=== PATIENT | male | born 1980 | race Caucasian/White ===

== ENCOUNTER 2018-12-06 11:08 | Inpatient (IN) | payer OTHER ==
[2018-12-06 11:38] VITALS: BMI 37.6
--- NOTE | 2018-12-06 12:32 | HP ---
CIWA Score Nausea/Vomitin-Mild Nausea/No Vomiting Muscle Tremors: 3 Anxiety: 3 Agitation: 3 Paroxysmal Sweats: 2 Orientation: 0-Oriented Tacttile Disturbances: 0-None Auditory Disturbances: 0-None Visual Disturbances: 0-None Headache: 1-Very Mild CIWA-Ar Total Score: 13 - Admission Criteria OASAS Guidelines: Admission for Medically Managed Detox: Requires at least one of the followin. CIWA greater than 12 2. Seizures within the past 24 hours 3. Delirium tremens within the past 24 hours 4. Hallucinations within the past 24 hours 5. Acute intervention needed for co occurring medical disorder 6. Acute intervention needed for co occurring psychiatric disorder 7. Severe withdrawal that cannot be handled at a lower level of care (continued vomiting, continued diarrhea, abnormal vital signs) requiring intravenous medication and/or fluids 8. Admission ROS [facility] Chief Complaint: detox from alcohol Allergies/Adverse Reactions: Allergies Allergy/AdvReac Type Severity Reaction Status Date / Time No Known Allergies Allergy Verified 12/06/18 11:34 History of Present Illness: 38 year old male with a history of COPD, alcohol and opiate dependence (on methadone) here fore alcohol detox. Reports being at [facility] for methadone, states he is on 80 mg and did not get his dose today because his clinic is in the afternoon. No legal problems. Wants to do both detox and rehab. Alcohol: 4 pints of whiskey a day, last drink this morning, every day drinker; drinking heavily for a few years, drinks because of family issues, depressed from breakup with ex; never had a withdrawal seizure Heroin: used 4 days ago, sniffed, never injected Methadone: been on methadone for 4 years, had not gone in 2 months and reinstated 1.5 weeks ago, is on 80mg daily per patient Cigarettes: 1ppd since age 14 Surgeries: R boxer fracture and metal plate in R wrist Family: 1 child healthy, close with child; father had leukemia Living Situation: lives in own place by himself Work: [employer] in [email or web address] - Ebola screening Have you traveled outside of the country in the last 21 days: No Have you had contact with anyone from an Ebola affected area: No Do you have a fever: No - Review of Systems Constitutional: Diaphoresis EENT: reports: No Symptoms Reported Respiratory: reports: No Symptoms reported Cardiac: reports: No Symptoms Reported GI: reports: Nausea : reports: No Symptoms Reported Musculoskeletal: reports: Back Pain, Joint Pain (L knee pain), Joint Swelling ( L knee swelling) Integumentary: reports: No Symptoms Reported Neuro: reports: Headache Endocrine: reports: No Symptoms Reported Hematology: reports: No Symptoms Reported Psychiatric: reports: Judgement Intact, Mood/Affect Appropiate, Orientated x3, Anxious, Depressed Patient History - Smoking Cessation Smoking history: Current every day smoker Have you smoked in the past 12 months: Yes Aproximately how many cigarettes per day: 20 Hx Chewing Tobacco Use: No Initiated information on smoking cessation: Yes 'Breaking Loose' booklet given: 12/06/18 - Substances abused Alcohol Substance route: Oral Frequency: Daily Amount used: 4 pint of whiskey Age of first use: 14 Date of last use: 12/06/18 Admission Physical Exam [facility] - Vital Signs Vital Signs: Vital Signs - 24 hr 12/06/18 12/06/18 11:33 12:10 Temperature 98.9 F 98.9 F Pulse Rate 81 81 Respiratory 20 20 Rate Blood Pressure 132/85 - Physical General Appearance: Yes: No Apparent Distress, Nourished HEENTM: Yes: EOMI, Hearing grossly Normal Respiratory: Yes: Chest Non-Tender, Wheezing (bilateral) Neck: Yes: Within Normal Limits Cardiology: Yes: Regular Rhythm, Regular Rate Abdominal: Yes: Non Tender, Flat, Soft Musculoskeletal: Yes: Joint swelling (L knee tender to palpation on medial aspect) Neurological: Yes: parking enforcement officer II-XII NML intact, Fully Oriented, Alert, Motor Strength 5/5, Normal Mood/Affect, Normal Response - Diagnostic (1) Alcohol dependence Current Visit: Yes Status: Acute (2) Methadone dependence Current Visit: Yes Status: Acute Cleared for Admission [facility] - Detox or Rehab [facility] Level of Care: Medically Managed Breathalyzer - Breathalyzer Breathalyzer: 0 Urine Drug Screen - Test Device Lot number: [id number] Expiration date: 08/04/20 - Control Is test valid?: Yes - Results Drug screen NEGATIVE: No Urine drug screen results: MTD-Methadone Inpatient Rehab Admission - Rehab Decision to Admit Inpatient rehab admission?: No
[2018-12-06] MEDS ORDERED: BISMUTH SUBSALICYLATE 262 MG/15 ML BTL PO PRN (12:43)
[2018-12-06] MEDS ORDERED: MAGNESIUM HYDROX 2400MG/30ML ORAL SUSPENSION 30 ML CUP PO PRN (12:43)
[2018-12-06] MEDS ORDERED: MAG HYDROX/AL HYDROX/SIMETH 30 ML UNIT-DOSE CUP PO PRN (12:43)
[2018-12-06] MEDS ORDERED: MAGNESIUM CITRATE 300 ML BOTTLE PO PRN (12:43)
[2018-12-06] MEDS ORDERED: ACETAMINOPHEN 325 MG TABLET (FP) PO PRN (12:43)
[2018-12-06] MEDS ORDERED: chlordiazePOXIDE HCL 25 MG CAPSULE PO PRN (12:43)
[2018-12-06] MEDS ORDERED: MENTHOL/PHENOL 1 EACH UD MM PRN (12:43)
[2018-12-06] MEDS ORDERED: ALBUTEROL SO4 8 GM HFA INHALER IH PRN (12:46)
[2018-12-06] MEDS ORDERED: BUDESONIDE/FORMETEROL FUMARATE 80/4.5 mcg INHALER IH SCH (13:00)
--- NOTE | 2018-12-06 13:43 | PN ---
Teaching Attending Note Name of Resident: Rajat Darnell ATTENDING PHYSICIAN STATEMENT I saw and evaluated the patient. I reviewed the resident's note and discussed the case with the resident. I agree with the resident's findings and plan as documented. SUBJECTIVE:this 38 years old male with alcohol dependence,seeking detox,mmtp 80 mgs/day, left knee pain,last detox in 05/24 OBJECTIVE: Vital Signs Temperature 98.9 F 12/06/18 12:10 Pulse Rate 81 12/06/18 12:10 Respiratory Rate 20 12/06/18 12:10 Blood Pressure 132/85 12/06/18 11:33 O2 Sat by Pulse Oximetry (%) ASSESSMENT AND PLAN: this 38 years old male with alcohol dependence,need inpatient detox,medically managed,librium regimen plan to go to rehab after detox
[2018-12-06] MEDS ORDERED: METHADONE HCL 10 MG TABLET PO ONE (14:30)
[2018-12-06] MEDS ORDERED: METHADONE HCL 40 MG DISPERSABLE TABLET PO ONE (14:30)
[2018-12-06] MEDS: NICOTINE 21 MG/24 HOURS TOPICAL PATCH TD SCH (14:53)
[2018-12-06] MEDS: BUDESONIDE/FORMETEROL FUMARATE 80/4.5 mcg INHALER IH SCH ×2 (14:55→22:07)
[2018-12-06 16:33] LABS: HEMATOCRIT 39.5 % (35.4-49); HEMOGLOBIN 13.9 GM/dL (11.7-16.9); MCHC 35.2 g/dl (32.0-35.9); MEAN CELL VOLUME 125.3 fl (80-96); MEAN PLT VOLUME 8.3 fl (7.5-11.1); PLATELET COUNT 404 K/MM3 (134-434); RBC 3.15 M/mm3 (4.00-5.60); RDW 18.3 % (11.9-15.9); WHITE BLOOD COUNT 7.1 K/mm3 (4.0-10.0)
[2018-12-06 16:40] LABS: MCH 44.2 pg (25.7-33.7)
[2018-12-06 16:43] LABS: ALBUMIN 3.2 g/dl (3.4-5.0); BILIRUBIN,TOTAL 0.5 mg/dL (0.2-1); CALCIUM 9.3 mg/dL (8.5-10.1); CREATININE 0.6 mg/dL (0.55-1.3); POTASSIUM 4.7 mmol/L (3.5-5.1); TOT PROT 7.8 g/dl (6.4-8.2)
[2018-12-06] MEDS: chlordiazePOXIDE HCL 25 MG CAPSULE PO SCH ×2 (16:51→22:07)
[2018-12-06 16:52] LABS: BLOOD UREA NITROGEN 2.9 mg/dL (7-18)
--- NOTE | 2018-12-06 17:14 | PN ---
[facility] Progress Note Note: No edema. No SOB. Noted decreased BUN. Pt GFR wnl. K and Cl - wnl CMP Sodium 138 mmol/L (136-145) 12/06/18 13:00 Potassium 4.7 mmol/L (3.5-5.1) 12/06/18 13:00 Chloride 101 mmol/L (98-107) 12/06/18 13:00 Carbon Dioxide 32 mmol/L (21-32) 12/06/18 13:00 Anion Gap 4 MMOL/L (8-16) L 12/06/18 13:00 BUN 2.9 mg/dL (7-18) L* 12/06/18 13:00 Creatinine 0.6 mg/dL (0.55-1.3) 12/06/18 13:00 Est GFR (CKD-EPI)AfAm 146.79 12/06/18 13:00 Est GFR (CKD-EPI)NonAf 126.65 12/06/18 13:00 Random Glucose 91 mg/dL (74-106) 12/06/18 13:00 Calcium 9.3 mg/dL (8.5-10.1) 12/06/18 13:00 Total Bilirubin 0.5 mg/dL (0.2-1) 12/06/18 13:00 AST 66 U/L (15-37) H 12/06/18 13:00 ALT 47 U/L (13-61) 12/06/18 13:00 Alkaline Phosphatase 131 U/L (45-117) H 12/06/18 13:00 Total Protein 7.8 g/dl (6.4-8.2) 12/06/18 13:00 Albumin 3.2 g/dl (3.4-5.0) L 12/06/18 13:00 Labs reviewed. Plan: Repeat CMP in a.m.
[2018-12-06] MEDS: IBUPROFEN 400 MG TABLET (FP) PO PRN (18:50)
[2018-12-06] MEDS: THIAMINE HCL 100 MG TABLET (FP) PO SCH (22:07)
[2018-12-06] MEDS: MELATONIN 5 MG TABLETS PO PRN (22:08)
[2018-12-07] MEDS: hydrOXYzine PAMOATE 25 MG CAPSULE (FP) PO PRN (02:40)
[2018-12-07] MEDS: chlordiazePOXIDE HCL 25 MG CAPSULE PO SCH ×4 (05:30→22:07)
[2018-12-07] MEDS: IBUPROFEN 400 MG TABLET (FP) PO PRN ×2 (05:34→15:32)
[2018-12-07] MEDS: METHADONE HCL 40 MG DISPERSABLE TABLET PO SCH (05:34)
[2018-12-07] MEDS: PRENATAL VITAMINS W/ FOLIC ACID TABLET (FP) PO SCH (10:09)
[2018-12-07] MEDS: BUDESONIDE/FORMETEROL FUMARATE 80/4.5 mcg INHALER IH SCH ×2 (10:09→22:06)
[2018-12-07] MEDS: NICOTINE 21 MG/24 HOURS TOPICAL PATCH TD SCH (10:09)
[2018-12-07 10:58] LABS: ALBUMIN 2.8 g/dl (3.4-5.0); BILIRUBIN,TOTAL 0.5 mg/dL (0.2-1); BLOOD UREA NITROGEN 4.8 mg/dL (7-18); CALCIUM 8.9 mg/dL (8.5-10.1); CREATININE 0.6 mg/dL (0.55-1.3); POTASSIUM 3.9 mmol/L (3.5-5.1); TOT PROT 6.5 g/dl (6.4-8.2)
--- NOTE | 2018-12-07 11:10 | PN ---
S CIWA - CIWA Score Nausea/Vomitin-No Nausea/No Vomiting Muscle Tremors: None Anxiety: 3 Agitation: 0-Normal Activity Paroxysmal Sweats: 3 Orientation: 0-Oriented Tacttile Disturbances: 0-None Auditory Disturbances: 0-None Visual Disturbances: 0-None Headache: 2-Mild CIWA-Ar Total Score: 8 [facility] Progress Note (SOAP) Subjective: c/o anxiety, headache, and sweats. Objective: 12/07/18 11:09 Vital Signs 12/07/18 12/07/18 12/07/18 03:30 06:08 09:02 Temperature 97.0 F L 97.0 F L Pulse Rate 76 83 Respiratory 18 18 18 Rate Blood Pressure 121/81 120/78 Lab Results WBC 7.1 K/mm3 (4.0-10.0) 12/06/18 13:00 RBC 3.15 M/mm3 (4.00-5.60) L 12/06/18 13:00 Hgb 13.9 GM/dL (11.7-16.9) 12/06/18 13:00 Hct 39.5 % (35.4-49) 12/06/18 13:00 MCV 125.3 fl (80-96) H 12/06/18 13:00 MCHC 35.2 g/dl (32.0-35.9) 12/06/18 13:00 RDW 18.3 % (11.9-15.9) H 12/06/18 13:00 Plt Count 404 K/MM3 (134-434) 12/06/18 13:00 Sodium 139 mmol/L (136-145) 12/07/18 07:45 Potassium 3.9 mmol/L (3.5-5.1) 12/07/18 07:45 Chloride 101 mmol/L (98-107) 12/07/18 07:45 Carbon Dioxide 30 mmol/L (21-32) 12/07/18 07:45 Anion Gap 7 MMOL/L (8-16) L 12/07/18 07:45 BUN 4.8 mg/dL (7-18) L 12/07/18 07:45 Creatinine 0.6 mg/dL (0.55-1.3) 12/07/18 07:45 Random Glucose 109 mg/dL (74-106) H 12/07/18 07:45 Calcium 8.9 mg/dL (8.5-10.1) 12/07/18 07:45 Labs noted. Assessment: 12/07/18 11:09 AOX3, in no acute respiratory distress. Full ROM, ambulating in the unit. Withdrawal symptoms. Plan: continue detox.
--- NOTE | 2018-12-07 16:09 | PN ---
[facility] Progress Note Note: I was called to see this 38year old male for c/o fall. Pt was seen in his room lying in bed verbally responsive and in no respiratory distress. Pt states, "my legs felt asleep and i lost my balance and hit my right face on the wall. Denies any dizziness, lightheadedness, chest pain, headache, sob, n/v. No abrasions, swelling, or bruises noted. No redness, swelling, or abrasions noted on face. Pt states that he has pain in his left knee/swelling x1week now. vital signs stable (refer to v/s flowsheet). PE: HEENT: EOMI, PERRLA HEART: s1/s2, no murmurs LUNGS: clear to a/p, no wheezing, no rales. ABD: soft, non-tender, no cvat, +bowel sounds all quadrants. EXTR:+pulses, left knee tenderness/mild swelling x1wk, no abrasions, swelling, or bruises, good capillary refill. ASS: s/p fall (unwitnessed). PLAN: ER evaluation continue with acetaminophen and ibuprofen for pain management. supportive care. Pt refused to go to the ER for evaluation. The importance of going to the ER to be evaluated explained to pt but still adamant.
[2018-12-07] MEDS: METHOCARBAMOL 500 MG TABLET PO PRN (17:43)
[2018-12-07] MEDS: ACETAMINOPHEN 325 MG TABLET (FP) PO PRN (17:44)
[2018-12-07] MEDS: THIAMINE HCL 100 MG TABLET (FP) PO SCH (22:06)
[2018-12-07] MEDS: MELATONIN 5 MG TABLETS PO PRN (22:06)
[2018-12-08] MEDS: IBUPROFEN 400 MG TABLET (FP) PO PRN ×3 (05:32→17:33)
[2018-12-08] MEDS: METHADONE HCL 40 MG DISPERSABLE TABLET PO SCH (05:32)
[2018-12-08] MEDS: chlordiazePOXIDE HCL 25 MG CAPSULE PO SCH ×4 (05:32→22:15)
[2018-12-08] MEDS: BUDESONIDE/FORMETEROL FUMARATE 80/4.5 mcg INHALER IH SCH ×2 (10:01→22:16)
[2018-12-08] MEDS: PRENATAL VITAMINS W/ FOLIC ACID TABLET (FP) PO SCH (10:01)
[2018-12-08] MEDS: NICOTINE 21 MG/24 HOURS TOPICAL PATCH TD SCH (10:01)
--- NOTE | 2018-12-08 10:40 | PN ---
S CIWA - CIWA Score Nausea/Vomitin-No Nausea/No Vomiting Muscle Tremors: 1-None Visible, but [place] Anxiety: 2 Agitation: 1-Slight > Activity Paroxysmal Sweats: No Perspiration Orientation: 0-Oriented Tacttile Disturbances: 0-None Auditory Disturbances: 0-None Visual Disturbances: 0-None Headache: 0-None Present CIWA-Ar Total Score: 4 [facility] Progress Note (SOAP) Subjective: 38 years old male admitted 12/06/18 for alcohol withdrawal sx management treated with librium detox regimen patient tolerated well had a fall yesterday denies pain patient is alert oriented x 3 speech clearly coherently denies nausea no vomiting denies dizziness denies blurred vision Objective: 12/08/18 10:42 Vital Signs Temperature 98.6 F 12/08/18 09:01 Pulse Rate 77 12/08/18 09:01 Respiratory Rate 18 12/08/18 09:01 Blood Pressure 125/84 12/08/18 09:01 O2 Sat by Pulse Oximetry (%) Laboratory Last Values WBC 7.1 K/mm3 (4.0-10.0) 12/06/18 13:00 RBC 3.15 M/mm3 (4.00-5.60) L 12/06/18 13:00 Hgb 13.9 GM/dL (11.7-16.9) 12/06/18 13:00 Hct 39.5 % (35.4-49) 12/06/18 13:00 MCV 125.3 fl (80-96) H 12/06/18 13:00 MCH 44.2 pg (25.7-33.7) H 12/06/18 13:00 MCHC 35.2 g/dl (32.0-35.9) 12/06/18 13:00 RDW 18.3 % (11.9-15.9) H 12/06/18 13:00 Plt Count 404 K/MM3 (134-434) 12/06/18 13:00 MPV 8.3 fl (7.5-11.1) 12/06/18 13:00 Sodium 139 mmol/L (136-145) 12/07/18 07:45 Potassium 3.9 mmol/L (3.5-5.1) 12/07/18 07:45 Chloride 101 mmol/L (98-107) 12/07/18 07:45 Carbon Dioxide 30 mmol/L (21-32) 12/07/18 07:45 Anion Gap 7 MMOL/L (8-16) L 12/07/18 07:45 BUN 4.8 mg/dL (7-18) L 12/07/18 07:45 Creatinine 0.6 mg/dL (0.55-1.3) 12/07/18 07:45 Est GFR (CKD-EPI)AfAm 146.79 12/07/18 07:45 Est GFR (CKD-EPI)NonAf 126.65 12/07/18 07:45 Random Glucose 109 mg/dL (74-106) H 12/07/18 07:45 Calcium 8.9 mg/dL (8.5-10.1) 12/07/18 07:45 Total Bilirubin 0.5 mg/dL (0.2-1) 12/07/18 07:45 AST 40 U/L (15-37) H 12/07/18 07:45 ALT 33 U/L (13-61) 12/07/18 07:45 Alkaline Phosphatase 102 U/L (45-117) 12/07/18 07:45 Total Protein 6.5 g/dl (6.4-8.2) 12/07/18 07:45 Albumin 2.8 g/dl (3.4-5.0) L 12/07/18 07:45 RPR Titer Nonreactive (NONREACTIVE) 12/06/18 13:00 lab noted Assessment: 12/08/18 10:43 alcohol withdrawal sx Plan: continue librium detox regimen
[2018-12-08] MEDS: METHOCARBAMOL 500 MG TABLET PO PRN (22:15)
[2018-12-08] MEDS: MELATONIN 5 MG TABLETS PO PRN (22:15)
[2018-12-08] MEDS: THIAMINE HCL 100 MG TABLET (FP) PO SCH (22:15)
[2018-12-09] MEDS ORDERED: chlordiazePOXIDE HCL 10 MG CAPSULE PO PRN
[2018-12-09] MEDS: hydrOXYzine PAMOATE 25 MG CAPSULE (FP) PO PRN (02:25)
[2018-12-09] MEDS: chlordiazePOXIDE HCL 10 MG CAPSULE PO SCH ×4 (05:10→22:07)
[2018-12-09] MEDS: IBUPROFEN 400 MG TABLET (FP) PO PRN ×3 (05:11→18:19)
[2018-12-09] MEDS: METHOCARBAMOL 500 MG TABLET PO PRN ×2 (05:11→22:07)
[2018-12-09] MEDS: METHADONE HCL 40 MG DISPERSABLE TABLET PO SCH (05:11)
[2018-12-09] MEDS: NICOTINE 21 MG/24 HOURS TOPICAL PATCH TD SCH (10:04)
[2018-12-09] MEDS: PRENATAL VITAMINS W/ FOLIC ACID TABLET (FP) PO SCH (10:04)
[2018-12-09] MEDS: ACETAMINOPHEN 325 MG TABLET (FP) PO PRN (10:05)
[2018-12-09] MEDS: BUDESONIDE/FORMETEROL FUMARATE 80/4.5 mcg INHALER IH SCH ×2 (10:05→22:07)
--- NOTE | 2018-12-09 13:01 | PN ---
[facility] CIWA - CIWA Score Nausea/Vomitin-No Nausea/No Vomiting Muscle Tremors: 1-None Visible, but [place] Anxiety: 1-Mildly Anxious Agitation: 0-Normal Activity Paroxysmal Sweats: No Perspiration Orientation: 0-Oriented Tacttile Disturbances: 0-None Auditory Disturbances: 0-None Visual Disturbances: 0-None Headache: 0-None Present CIWA-Ar Total Score: 2 S Progress Note (SOAP) Subjective: 38 years old male admitted on 12/06/18 for alcohol withdrawal sx management treated with librium detox regimen patient tolerated well alert oriented x 3 discuss aftercare with staff in good sprite Objective: 12/09/18 13:00 Vital Signs Temperature 97.6 F 12/09/18 09:16 Pulse Rate 81 12/09/18 09:16 Respiratory Rate 18 12/09/18 09:16 Blood Pressure 113/73 12/09/18 09:16 O2 Sat by Pulse Oximetry (%) Laboratory Last Values WBC 7.1 K/mm3 (4.0-10.0) 12/06/18 13:00 RBC 3.15 M/mm3 (4.00-5.60) L 12/06/18 13:00 Hgb 13.9 GM/dL (11.7-16.9) 12/06/18 13:00 Hct 39.5 % (35.4-49) 12/06/18 13:00 MCV 125.3 fl (80-96) H 12/06/18 13:00 MCH 44.2 pg (25.7-33.7) H 12/06/18 13:00 MCHC 35.2 g/dl (32.0-35.9) 12/06/18 13:00 RDW 18.3 % (11.9-15.9) H 12/06/18 13:00 Plt Count 404 K/MM3 (134-434) 12/06/18 13:00 MPV 8.3 fl (7.5-11.1) 12/06/18 13:00 Sodium 139 mmol/L (136-145) 12/07/18 07:45 Potassium 3.9 mmol/L (3.5-5.1) 12/07/18 07:45 Chloride 101 mmol/L (98-107) 12/07/18 07:45 Carbon Dioxide 30 mmol/L (21-32) 12/07/18 07:45 Anion Gap 7 MMOL/L (8-16) L 12/07/18 07:45 BUN 4.8 mg/dL (7-18) L 12/07/18 07:45 Creatinine 0.6 mg/dL (0.55-1.3) 12/07/18 07:45 Est GFR (CKD-EPI)AfAm 146.79 12/07/18 07:45 Est GFR (CKD-EPI)NonAf 126.65 12/07/18 07:45 Random Glucose 109 mg/dL (74-106) H 12/07/18 07:45 Calcium 8.9 mg/dL (8.5-10.1) 12/07/18 07:45 Total Bilirubin 0.5 mg/dL (0.2-1) 12/07/18 07:45 AST 40 U/L (15-37) H 12/07/18 07:45 ALT 33 U/L (13-61) 12/07/18 07:45 Alkaline Phosphatase 102 U/L (45-117) 12/07/18 07:45 Total Protein 6.5 g/dl (6.4-8.2) 12/07/18 07:45 Albumin 2.8 g/dl (3.4-5.0) L 12/07/18 07:45 RPR Titer Nonreactive (NONREACTIVE) 12/06/18 13:00 lab noted Assessment: 12/09/18 13:00 alcohol withdrawal sx Plan: continue librium detox regimen
[2018-12-09] MEDS: THIAMINE HCL 100 MG TABLET (FP) PO SCH (22:07)
[2018-12-09] MEDS: MELATONIN 5 MG TABLETS PO PRN (22:08)
[2018-12-10] MEDS: hydrOXYzine PAMOATE 25 MG CAPSULE (FP) PO PRN ×2 (00:33→21:32)
[2018-12-10] MEDS: chlordiazePOXIDE HCL 10 MG CAPSULE PO SCH ×2 (05:52→17:11)
[2018-12-10] MEDS: METHADONE HCL 40 MG DISPERSABLE TABLET PO SCH (05:52)
[2018-12-10] MEDS: ACETAMINOPHEN 325 MG TABLET (FP) PO PRN ×2 (06:06→17:13)
[2018-12-10] MEDS: PRENATAL VITAMINS W/ FOLIC ACID TABLET (FP) PO SCH (09:51)
[2018-12-10] MEDS: BUDESONIDE/FORMETEROL FUMARATE 80/4.5 mcg INHALER IH SCH ×2 (09:51→21:33)
[2018-12-10] MEDS: NICOTINE 21 MG/24 HOURS TOPICAL PATCH TD SCH (09:52)
--- NOTE | 2018-12-10 10:25 | PN ---
[facility] CIWA - CIWA Score Nausea/Vomitin-No Nausea/No Vomiting Muscle Tremors: 1-None Visible, but [place] Anxiety: 0-No Anxiety, at Ease Agitation: 0-Normal Activity Paroxysmal Sweats: No Perspiration Orientation: 0-Oriented Tacttile Disturbances: 0-None Auditory Disturbances: 0-None Visual Disturbances: 0-None Headache: 0-None Present CIWA-Ar Total Score: 1 S Progress Note (SOAP) Subjective: 38 years old male admitted on 12/06/18 for alcohol withdrawal sx management treated with librium detox regimen patient tolerated well less tremor mild anxiety Objective: 12/10/18 10:24 Vital Signs Temperature 97.9 F 12/10/18 09:17 Pulse Rate 77 12/10/18 09:17 Respiratory Rate 18 12/10/18 09:17 Blood Pressure 127/86 12/10/18 09:17 O2 Sat by Pulse Oximetry (%) Laboratory Last Values WBC 7.1 K/mm3 (4.0-10.0) 12/06/18 13:00 RBC 3.15 M/mm3 (4.00-5.60) L 12/06/18 13:00 Hgb 13.9 GM/dL (11.7-16.9) 12/06/18 13:00 Hct 39.5 % (35.4-49) 12/06/18 13:00 MCV 125.3 fl (80-96) H 12/06/18 13:00 MCH 44.2 pg (25.7-33.7) H 12/06/18 13:00 MCHC 35.2 g/dl (32.0-35.9) 12/06/18 13:00 RDW 18.3 % (11.9-15.9) H 12/06/18 13:00 Plt Count 404 K/MM3 (134-434) 12/06/18 13:00 MPV 8.3 fl (7.5-11.1) 12/06/18 13:00 Sodium 139 mmol/L (136-145) 12/07/18 07:45 Potassium 3.9 mmol/L (3.5-5.1) 12/07/18 07:45 Chloride 101 mmol/L (98-107) 12/07/18 07:45 Carbon Dioxide 30 mmol/L (21-32) 12/07/18 07:45 Anion Gap 7 MMOL/L (8-16) L 12/07/18 07:45 BUN 4.8 mg/dL (7-18) L 12/07/18 07:45 Creatinine 0.6 mg/dL (0.55-1.3) 12/07/18 07:45 Est GFR (CKD-EPI)AfAm 146.79 12/07/18 07:45 Est GFR (CKD-EPI)NonAf 126.65 12/07/18 07:45 Random Glucose 109 mg/dL (74-106) H 12/07/18 07:45 Calcium 8.9 mg/dL (8.5-10.1) 12/07/18 07:45 Total Bilirubin 0.5 mg/dL (0.2-1) 12/07/18 07:45 AST 40 U/L (15-37) H 12/07/18 07:45 ALT 33 U/L (13-61) 12/07/18 07:45 Alkaline Phosphatase 102 U/L (45-117) 12/07/18 07:45 Total Protein 6.5 g/dl (6.4-8.2) 12/07/18 07:45 Albumin 2.8 g/dl (3.4-5.0) L 12/07/18 07:45 RPR Titer Nonreactive (NONREACTIVE) 12/06/18 13:00 lab noted Assessment: 12/10/18 10:25 alcohol withdrawal sx Plan: librium detox regimen
[2018-12-10] MEDS: IBUPROFEN 400 MG TABLET (FP) PO PRN ×2 (11:54→21:33)
[2018-12-10] MEDS: METHOCARBAMOL 500 MG TABLET PO PRN ×2 (11:54→21:32)
[2018-12-10] MEDS: THIAMINE HCL 100 MG TABLET (FP) PO SCH (21:32)
[2018-12-10] MEDS: MELATONIN 5 MG TABLETS PO PRN (21:33)
[2018-12-11] MEDS ORDERED: chlordiazePOXIDE HCL 10 MG CAPSULE PO ONE (05:00)
[2018-12-11] MEDS: METHADONE HCL 40 MG DISPERSABLE TABLET PO SCH (05:40)
[2018-12-11] MEDS: IBUPROFEN 400 MG TABLET (FP) PO PRN (05:41)
[2018-12-11] MEDS: METHOCARBAMOL 500 MG TABLET PO PRN (05:41)
[2018-12-11] MEDS: NICOTINE 21 MG/24 HOURS TOPICAL PATCH TD SCH (10:10)
[2018-12-11] MEDS: BUDESONIDE/FORMETEROL FUMARATE 80/4.5 mcg INHALER IH SCH (10:11)
[2018-12-11] MEDS: PRENATAL VITAMINS W/ FOLIC ACID TABLET (FP) PO SCH (10:11)
--- NOTE | 2018-12-11 10:56 | DS ---
[facility] Detox Discharge Summary Admission Date: 12/06/18 Discharge Date: 12/11/18 - History Present History: Alcohol Dependence Additional Comments: 38 years old male admitted on 12/06/18 for alcohol withdrawal sx management treated with libirum detox regimen patient is alert oriented x 3 respiratory clear lung bilaterally on auscultation long history of asthma treated with ventolin and symbicort abdomen soft round obese no rebound tenderness skin warm dry - Physical Exam Results Vital Signs: Vital Signs Temperature 98.4 F 12/11/18 09:03 Pulse Rate 96 H 12/11/18 09:03 Respiratory Rate 18 12/11/18 09:03 Blood Pressure 115/82 12/11/18 09:03 O2 Sat by Pulse Oximetry (%) Pertinent Admission Physical Exam Findings: alcohol withdrawal sx Laboratory Last Values WBC 7.1 K/mm3 (4.0-10.0) 12/06/18 13:00 RBC 3.15 M/mm3 (4.00-5.60) L 12/06/18 13:00 Hgb 13.9 GM/dL (11.7-16.9) 12/06/18 13:00 Hct 39.5 % (35.4-49) 12/06/18 13:00 MCV 125.3 fl (80-96) H 12/06/18 13:00 MCH 44.2 pg (25.7-33.7) H 12/06/18 13:00 MCHC 35.2 g/dl (32.0-35.9) 12/06/18 13:00 RDW 18.3 % (11.9-15.9) H 12/06/18 13:00 Plt Count 404 K/MM3 (134-434) 12/06/18 13:00 MPV 8.3 fl (7.5-11.1) 12/06/18 13:00 Sodium 139 mmol/L (136-145) 12/07/18 07:45 Potassium 3.9 mmol/L (3.5-5.1) 12/07/18 07:45 Chloride 101 mmol/L (98-107) 12/07/18 07:45 Carbon Dioxide 30 mmol/L (21-32) 12/07/18 07:45 Anion Gap 7 MMOL/L (8-16) L 12/07/18 07:45 BUN 4.8 mg/dL (7-18) L 12/07/18 07:45 Creatinine 0.6 mg/dL (0.55-1.3) 12/07/18 07:45 Est GFR (CKD-EPI)AfAm 146.79 12/07/18 07:45 Est GFR (CKD-EPI)NonAf 126.65 12/07/18 07:45 Random Glucose 109 mg/dL (74-106) H 12/07/18 07:45 Calcium 8.9 mg/dL (8.5-10.1) 12/07/18 07:45 Total Bilirubin 0.5 mg/dL (0.2-1) 12/07/18 07:45 AST 40 U/L (15-37) H 12/07/18 07:45 ALT 33 U/L (13-61) 12/07/18 07:45 Alkaline Phosphatase 102 U/L (45-117) 12/07/18 07:45 Total Protein 6.5 g/dl (6.4-8.2) 12/07/18 07:45 Albumin 2.8 g/dl (3.4-5.0) L 12/07/18 07:45 RPR Titer Nonreactive (NONREACTIVE) 12/06/18 13:00 lab noted - Treatment Hospital Course: Detox Protocol Followed, Detoxed Safely, Responded well, Discharged Condition Good, Rehab Referral Accepted Patient has Accepted [facility] - Medication Discharge Medications: Ambulatory Orders Albuterol Sulfate Inhaler - [Ventolin HFA Inhaler -] 1 - 2 inh PO QID PRN Budesonide/Formeterol Fumarate [SYMBICORT 80/4.5mcg -] 1 inh PO DAILY 12/06/18 - Diagnosis (1) Asthma Current Visit: Yes Status: Chronic Qualifiers: Asthma severity: mild Asthma persistence: intermittent Asthma complication type: with status asthmaticus Qualified Code(s): J45.22 - Mild intermittent asthma with status asthmaticus (2) Alcohol dependence Current Visit: Yes Status: Acute Qualifiers: Substance use status: uncomplicated Qualified Code(s): F10.20 - Alcohol dependence, uncomplicated (3) Methadone dependence Current Visit: Yes Status: Chronic - AMA Did Patient Leave Against Medical Advice: No CIWA Score - CIWA Score Nausea/Vomitin-No Nausea/No Vomiting Muscle Tremors: None Anxiety: 0-No Anxiety, at Ease Agitation: 0-Normal Activity Paroxysmal Sweats: No Perspiration Orientation: 0-Oriented Tacttile Disturbances: 0-None Auditory Disturbances: 0-None Visual Disturbances: 0-None Headache: 0-None Present CIWA-Ar Total Score: 0
[2018-12-11] MEDS: ACETAMINOPHEN 325 MG TABLET (FP) PO PRN (11:46)
[2018-12-11 13:16] VITALS: BP 115/67; PULSE 90; TEMP 96.5
== END 2018-12-11 14:34 | disposition other institution (70) | DRG 773 ==
LOC: YASAS 11:08 → Y3N 14:15
PROVIDERS: ADMIT Allergy & Immunology; ATTEND Allergy & Immunology
PROC: HZ2ZZZZ Detoxification Services for Substance Abuse Treatment (ICD-10-PCS; principal; 2018-12-06)
DX: F11.23 Opioid dependence with withdrawal (principal); F11.20 Opioid dependence, uncomplicated; J45.22 Mild intermittent asthma with status asthmaticus; J44.9 Chronic obstructive pulmonary disease, unspecified; S09.93XA Unspecified injury of face, initial encounter; M25.562 Pain in left knee; W22.8XXA Striking against or struck by other objects, initial encounter; Y93.89 Activity, other specified; Y92.230 Patient room in hospital as the place of occurrence of the external cause; Y99.8 Other external cause status
CPT/HCPCS: 36415; 80053; 85027; 86593

== ENCOUNTER 2018-12-11 14:42 | Inpatient (IN) | payer OTHER ==
--- NOTE | 2018-12-11 10:58 | HP ---
[facility] Rehab Assess/Revision - Admission History Admitted to Rehab from: [facility] Date of Admission to Rehab: 12/11/18 - Findings Detox History & Physical reviewed: Yes Concur with findings: Yes Comments/Additional Findings: transferred from detox to rehab admission as per protocol Inpatient Rehab Admission - Rehab Decision to Admit Inpatient rehab admission?: Yes - Initial Determination Are CD services needed?: Yes Free of communicable disease: Yes Not in need of hospitalization: Yes - Rehab Admission Criteria Previous failed treatment: Yes Poor recovery environment: Yes Comorbidities: Yes Lacks judgement: Yes Patient is meeting Inpatient Rehab admission criteria:: Yes
[~2018-12-11 14:42] MED LIST: LOPERAMIDE HCL 2 MG CAPSULE PO PRN; MAGNESIUM CITRATE 300 ML BOTTLE PO PRN; MAGNESIUM HYDROX 2400MG/30ML ORAL SUSPENSION 30 ML CUP PO PRN; MENTHOL/PHENOL 1 EACH UD MM PRN; NICOTINE POLACRILEX 4 MG GUM BUC PRN; P-EPHED 60MG/TRIPROLIDI 2.5MG TABLET PO PRN; guaiFENesin 200 MG/10 ML 10 ML UNIT-DOSE CUPS PO PRN
[2018-12-11] MEDS: IBUPROFEN 400 MG TABLET (FP) PO PRN (18:48)
[2018-12-11] MEDS: THIAMINE HCL 100 MG TABLET (FP) PO SCH (21:08)
[2018-12-11] MEDS: MELATONIN 5 MG TABLETS PO PRN (21:08)
[2018-12-11] MEDS: BUDESONIDE/FORMETEROL FUMARATE 80/4.5 mcg INHALER IH SCH (21:09)
[2018-12-12] MEDS: METHADONE HCL 40 MG DISPERSABLE TABLET PO SCH (06:00)
[2018-12-12] MEDS: IBUPROFEN 400 MG TABLET (FP) PO PRN ×3 (06:01→21:14)
[2018-12-12] MEDS: NICOTINE 21 MG/24 HOURS TOPICAL PATCH TD SCH (10:01)
[2018-12-12] MEDS: PRENATAL VITAMINS W/ FOLIC ACID TABLET (FP) PO SCH (10:01)
[2018-12-12] MEDS: BUDESONIDE/FORMETEROL FUMARATE 80/4.5 mcg INHALER IH SCH ×2 (10:01→21:12)
[2018-12-12] MEDS: ALBUTEROL SO4 8 GM HFA INHALER IH PRN (10:02)
[2018-12-12] MEDS: ACETAMINOPHEN 325 MG TABLET (FP) PO PRN ×2 (10:03→14:57)
[2018-12-12] MEDS: METHYL SALICYLATE/MENTHOL OINT 30 GM TUBE TP SCH ×2 (15:02→21:13)
[2018-12-12] MEDS: THIAMINE HCL 100 MG TABLET (FP) PO SCH (21:12)
[2018-12-12] MEDS: MELATONIN 5 MG TABLETS PO PRN (21:13)
[2018-12-13] MEDS: METHADONE HCL 40 MG DISPERSABLE TABLET PO SCH (06:14)
[2018-12-13] MEDS: IBUPROFEN 400 MG TABLET (FP) PO PRN (06:15)
[2018-12-13] MEDS: ALBUTEROL SO4 8 GM HFA INHALER IH PRN (10:12)
[2018-12-13] MEDS: BUDESONIDE/FORMETEROL FUMARATE 80/4.5 mcg INHALER IH SCH ×2 (10:12→21:12)
[2018-12-13] MEDS: ACETAMINOPHEN 325 MG TABLET (FP) PO PRN (10:13)
[2018-12-13] MEDS: PRENATAL VITAMINS W/ FOLIC ACID TABLET (FP) PO SCH (10:13)
[2018-12-13] MEDS: NICOTINE 21 MG/24 HOURS TOPICAL PATCH TD SCH (10:15)
[2018-12-13] MEDS: METHYL SALICYLATE/MENTHOL OINT 30 GM TUBE TP SCH ×2 (10:15→21:14)
--- NOTE | 2018-12-13 12:19 | PN ---
S Progress Note Note: Pt c/o left knee, ankle and foot pain since July 2018. Reports went to his doctor over the summer and it was not that painful. Pt is wondering if he needs and can do an MRI here. Vital Signs 12/13/18 07:19 Temperature 97.5 F L Pulse Rate 81 Respiratory 18 Rate Blood Pressure 108/84 Left Leg: slight size difference in size compare to right knee. No redness noted. A/P Chronic Knee/foot pain D/w pt motrin 600 mg po Q6h prn Lidocaine patch as directed Analgesic balm as directed Follow up with his primary care and orthopedics after rehab treatment. Pt agreeable to poc.
[2018-12-13] MEDS: LIDOCAINE 5% TOPICAL PATCH TP SCH (14:14)
[2018-12-13] MEDS: IBUPROFEN 600 MG TABLET (FP) PO PRN ×2 (14:14→21:13)
[2018-12-13] MEDS: THIAMINE HCL 100 MG TABLET (FP) PO SCH (21:12)
[2018-12-13] MEDS: MELATONIN 5 MG TABLETS PO PRN (21:12)
[2018-12-13] MEDS: LIDOCAINE PATCH REMOVAL MC SCH (21:14)
[2018-12-14] MEDS: ACETAMINOPHEN 325 MG TABLET (FP) PO PRN (01:40)
[2018-12-14] MEDS: METHADONE HCL 40 MG DISPERSABLE TABLET PO SCH (06:26)
[2018-12-14] MEDS: IBUPROFEN 600 MG TABLET (FP) PO PRN ×2 (06:28→14:06)
[2018-12-14] MEDS: PRENATAL VITAMINS W/ FOLIC ACID TABLET (FP) PO SCH (09:37)
[2018-12-14] MEDS: NICOTINE 21 MG/24 HOURS TOPICAL PATCH TD SCH (09:37)
[2018-12-14] MEDS: LIDOCAINE 5% TOPICAL PATCH TP SCH (09:38)
[2018-12-14] MEDS: BUDESONIDE/FORMETEROL FUMARATE 80/4.5 mcg INHALER IH SCH ×2 (09:39→21:12)
[2018-12-14] MEDS: METHYL SALICYLATE/MENTHOL OINT 30 GM TUBE TP SCH ×2 (10:54→21:12)
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
[2018-12-14] MEDS: LIDOCAINE PATCH REMOVAL MC SCH (21:12)
[2018-12-14] MEDS: THIAMINE HCL 100 MG TABLET (FP) PO SCH (21:13)
[2018-12-14] MEDS: MELATONIN 5 MG TABLETS PO PRN (21:13)
[2018-12-14] MEDS ORDERED: traZODone HCL 50 MG TABLET (FP) PO ONE (22:08)
[2018-12-15] MEDS: METHADONE HCL 40 MG DISPERSABLE TABLET PO SCH (06:12)
[2018-12-15] MEDS: IBUPROFEN 600 MG TABLET (FP) PO PRN ×3 (06:14→21:12)
[2018-12-15] MEDS: BUDESONIDE/FORMETEROL FUMARATE 80/4.5 mcg INHALER IH SCH ×2 (10:09→21:09)
[2018-12-15] MEDS: LIDOCAINE 5% TOPICAL PATCH TP SCH (10:10)
[2018-12-15] MEDS: NICOTINE 21 MG/24 HOURS TOPICAL PATCH TD SCH (10:10)
[2018-12-15] MEDS: PRENATAL VITAMINS W/ FOLIC ACID TABLET (FP) PO SCH (10:11)
[2018-12-15] MEDS: METHYL SALICYLATE/MENTHOL OINT 30 GM TUBE TP SCH ×2 (10:11→21:11)
[2018-12-15] MEDS: ACETAMINOPHEN 325 MG TABLET (FP) PO PRN (18:53)
[2018-12-15] MEDS: THIAMINE HCL 100 MG TABLET (FP) PO SCH (21:09)
[2018-12-15] MEDS: LIDOCAINE PATCH REMOVAL MC SCH (21:09)
[2018-12-15] MEDS: MELATONIN 5 MG TABLETS PO PRN (21:10)
[2018-12-16] MEDS: METHADONE HCL 40 MG DISPERSABLE TABLET PO SCH (06:21)
[2018-12-16] MEDS: IBUPROFEN 600 MG TABLET (FP) PO PRN ×3 (06:23→21:16)
[2018-12-16] MEDS: PRENATAL VITAMINS W/ FOLIC ACID TABLET (FP) PO SCH (10:00)
[2018-12-16] MEDS: NICOTINE 21 MG/24 HOURS TOPICAL PATCH TD SCH (10:00)
[2018-12-16] MEDS: LIDOCAINE 5% TOPICAL PATCH TP SCH (10:00)
[2018-12-16] MEDS: BUDESONIDE/FORMETEROL FUMARATE 80/4.5 mcg INHALER IH SCH ×2 (10:00→21:14)
[2018-12-16] MEDS: METHYL SALICYLATE/MENTHOL OINT 30 GM TUBE TP SCH ×2 (10:01→21:15)
[2018-12-16] MEDS: LIDOCAINE PATCH REMOVAL MC SCH (21:14)
[2018-12-16] MEDS: MELATONIN 5 MG TABLETS PO PRN (21:14)
[2018-12-16] MEDS: THIAMINE HCL 100 MG TABLET (FP) PO SCH (21:14)
[2018-12-16] MEDS ORDERED: traZODone HCL 50 MG TABLET (FP) PO SCH (22:00)
[2018-12-17] MEDS: METHADONE HCL 40 MG DISPERSABLE TABLET PO SCH (06:00)
[2018-12-17] MEDS: IBUPROFEN 600 MG TABLET (FP) PO PRN ×3 (06:01→21:09)
[2018-12-17] MEDS: PRENATAL VITAMINS W/ FOLIC ACID TABLET (FP) PO SCH (10:35)
[2018-12-17] MEDS: LIDOCAINE 5% TOPICAL PATCH TP SCH (10:36)
[2018-12-17] MEDS: ALBUTEROL SO4 8 GM HFA INHALER IH PRN (10:36)
[2018-12-17] MEDS: NICOTINE 21 MG/24 HOURS TOPICAL PATCH TD SCH (10:36)
[2018-12-17] MEDS: BUDESONIDE/FORMETEROL FUMARATE 80/4.5 mcg INHALER IH SCH ×2 (10:36→21:08)
[2018-12-17] MEDS: METHYL SALICYLATE/MENTHOL OINT 30 GM TUBE TP SCH ×2 (10:36→21:08)
[2018-12-17] MEDS: ACETAMINOPHEN 325 MG TABLET (FP) PO PRN (10:37)
--- NOTE | 2018-12-17 18:23 | PN ---
[facility] Progress Note Note: Psychiatry Attending's note (folow-up) : Called by nurse for titration of trazodone. Reason : partial response to 50 mg at bedtime. Mr Palm still reports limited improvement of insomnia. Now requesting increase to 100 mg/hs (his dose in the past). Side effects/benefits revisited with the patient. Trazodone ordered. Plan : trazodone 100 mg po hs. Sleep hygiene recommended. Patient seen.
[2018-12-17] MEDS: THIAMINE HCL 100 MG TABLET (FP) PO SCH (21:07)
[2018-12-17] MEDS: traZODone HCL 100 MG TABLET (FP) PO SCH (21:07)
[2018-12-17] MEDS: LIDOCAINE PATCH REMOVAL MC SCH (21:08)
[2018-12-17] MEDS: MELATONIN 5 MG TABLETS PO PRN (21:10)
[2018-12-18] MEDS: METHADONE HCL 40 MG DISPERSABLE TABLET PO SCH (06:15)
[2018-12-18] MEDS: IBUPROFEN 600 MG TABLET (FP) PO PRN ×3 (06:18→21:09)
[2018-12-18] MEDS: ALBUTEROL SO4 8 GM HFA INHALER IH PRN ×2 (07:09→14:11)
[2018-12-18] MEDS: LIDOCAINE 5% TOPICAL PATCH TP SCH (10:05)
[2018-12-18] MEDS: NICOTINE 21 MG/24 HOURS TOPICAL PATCH TD SCH (10:06)
[2018-12-18] MEDS: PRENATAL VITAMINS W/ FOLIC ACID TABLET (FP) PO SCH (10:06)
[2018-12-18] MEDS: METHYL SALICYLATE/MENTHOL OINT 30 GM TUBE TP SCH ×2 (10:07→21:10)
[2018-12-18] MEDS: BUDESONIDE/FORMETEROL FUMARATE 80/4.5 mcg INHALER IH SCH ×2 (10:07→21:08)
[2018-12-18] MEDS: ACETAMINOPHEN 325 MG TABLET (FP) PO PRN ×2 (10:07→17:06)
[2018-12-18] MEDS: traZODone HCL 100 MG TABLET (FP) PO SCH (21:08)
[2018-12-18] MEDS: THIAMINE HCL 100 MG TABLET (FP) PO SCH (21:09)
[2018-12-18] MEDS: LIDOCAINE PATCH REMOVAL MC SCH (21:11)
[2018-12-18] MEDS: MELATONIN 5 MG TABLETS PO PRN (22:11)
[2018-12-19] MEDS: METHADONE HCL 40 MG DISPERSABLE TABLET PO SCH (07:15)
[2018-12-19] MEDS: LIDOCAINE 5% TOPICAL PATCH TP SCH (10:15)
[2018-12-19] MEDS: BUDESONIDE/FORMETEROL FUMARATE 80/4.5 mcg INHALER IH SCH ×2 (10:15→21:18)
[2018-12-19] MEDS: PRENATAL VITAMINS W/ FOLIC ACID TABLET (FP) PO SCH (10:15)
[2018-12-19] MEDS: NICOTINE 21 MG/24 HOURS TOPICAL PATCH TD SCH (10:15)
[2018-12-19] MEDS: IBUPROFEN 600 MG TABLET (FP) PO PRN (10:16)
[2018-12-19] MEDS: METHYL SALICYLATE/MENTHOL OINT 30 GM TUBE TP SCH ×2 (10:19→21:19)
[2018-12-19] MEDS: METHOCARBAMOL 500 MG TABLET PO PRN ×2 (13:39→21:19)
[2018-12-19] MEDS: THIAMINE HCL 100 MG TABLET (FP) PO SCH (21:18)
[2018-12-19] MEDS: MELATONIN 5 MG TABLETS PO PRN (21:18)
[2018-12-19] MEDS: traZODone HCL 100 MG TABLET (FP) PO SCH (21:18)
[2018-12-19] MEDS: LIDOCAINE PATCH REMOVAL MC SCH (21:19)
[2018-12-20] MEDS: METHADONE HCL 40 MG DISPERSABLE TABLET PO SCH (06:12)
[2018-12-20] MEDS: METHOCARBAMOL 500 MG TABLET PO PRN ×3 (06:15→21:08)
[2018-12-20] MEDS: IBUPROFEN 600 MG TABLET (FP) PO PRN ×2 (08:50→17:32)
[2018-12-20] MEDS: PRENATAL VITAMINS W/ FOLIC ACID TABLET (FP) PO SCH (09:48)
[2018-12-20] MEDS: NICOTINE 21 MG/24 HOURS TOPICAL PATCH TD SCH (09:48)
[2018-12-20] MEDS: LIDOCAINE 5% TOPICAL PATCH TP SCH (09:49)
[2018-12-20] MEDS: METHYL SALICYLATE/MENTHOL OINT 30 GM TUBE TP SCH ×2 (11:21→21:09)
[2018-12-20] MEDS: BUDESONIDE/FORMETEROL FUMARATE 80/4.5 mcg INHALER IH SCH ×2 (11:22→21:08)
[2018-12-20] MEDS: MAG HYDROX/AL HYDROX/SIMETH 30 ML UNIT-DOSE CUP PO PRN (19:40)
[2018-12-20] MEDS: traZODone HCL 100 MG TABLET (FP) PO SCH (21:07)
[2018-12-20] MEDS: LIDOCAINE PATCH REMOVAL MC SCH (21:08)
[2018-12-20] MEDS: MELATONIN 5 MG TABLETS PO PRN (21:09)
[2018-12-20] MEDS: THIAMINE HCL 100 MG TABLET (FP) PO SCH (21:09)
[2018-12-21] MEDS: METHOCARBAMOL 500 MG TABLET PO PRN ×3 (06:13→21:11)
[2018-12-21] MEDS: METHADONE HCL 40 MG DISPERSABLE TABLET PO SCH (06:13)
[2018-12-21] MEDS: PRENATAL VITAMINS W/ FOLIC ACID TABLET (FP) PO SCH (09:55)
[2018-12-21] MEDS: IBUPROFEN 600 MG TABLET (FP) PO PRN ×2 (09:55→18:29)
[2018-12-21] MEDS: LIDOCAINE 5% TOPICAL PATCH TP SCH (09:57)
[2018-12-21] MEDS: METHYL SALICYLATE/MENTHOL OINT 30 GM TUBE TP SCH ×2 (09:57→21:11)
[2018-12-21] MEDS: NICOTINE 21 MG/24 HOURS TOPICAL PATCH TD SCH (09:57)
[2018-12-21] MEDS: BUDESONIDE/FORMETEROL FUMARATE 80/4.5 mcg INHALER IH SCH ×2 (09:58→21:11)
[2018-12-21] MEDS: MAG HYDROX/AL HYDROX/SIMETH 30 ML UNIT-DOSE CUP PO PRN (10:30)
[2018-12-21] MEDS: ACETAMINOPHEN 325 MG TABLET (FP) PO PRN (14:56)
[2018-12-21] MEDS: ALBUTEROL SO4 8 GM HFA INHALER IH PRN (14:56)
[2018-12-21] MEDS: traZODone HCL 100 MG TABLET (FP) PO SCH (21:10)
[2018-12-21] MEDS: THIAMINE HCL 100 MG TABLET (FP) PO SCH (21:10)
[2018-12-21] MEDS: MELATONIN 5 MG TABLETS PO PRN (21:12)
[2018-12-21] MEDS: LIDOCAINE PATCH REMOVAL MC SCH (21:12)
[2018-12-22] MEDS: METHOCARBAMOL 500 MG TABLET PO PRN ×3 (06:06→21:08)
[2018-12-22] MEDS: METHADONE HCL 40 MG DISPERSABLE TABLET PO SCH (06:06)
[2018-12-22] MEDS: NICOTINE 21 MG/24 HOURS TOPICAL PATCH TD SCH (09:36)
[2018-12-22] MEDS: METHYL SALICYLATE/MENTHOL OINT 30 GM TUBE TP SCH ×2 (09:36→21:07)
[2018-12-22] MEDS: LIDOCAINE 5% TOPICAL PATCH TP SCH (09:36)
[2018-12-22] MEDS: PRENATAL VITAMINS W/ FOLIC ACID TABLET (FP) PO SCH (09:36)
[2018-12-22] MEDS: BUDESONIDE/FORMETEROL FUMARATE 80/4.5 mcg INHALER IH SCH ×2 (09:37→21:09)
[2018-12-22] MEDS: IBUPROFEN 600 MG TABLET (FP) PO PRN ×2 (13:08→18:54)
[2018-12-22] MEDS: THIAMINE HCL 100 MG TABLET (FP) PO SCH (21:07)
[2018-12-22] MEDS: MELATONIN 5 MG TABLETS PO PRN (21:07)
[2018-12-22] MEDS: traZODone HCL 100 MG TABLET (FP) PO SCH (21:07)
[2018-12-22] MEDS: LIDOCAINE PATCH REMOVAL MC SCH (21:08)
[2018-12-22] MEDS: ACETAMINOPHEN 325 MG TABLET (FP) PO PRN (21:10)
[2018-12-23] MEDS: MAG HYDROX/AL HYDROX/SIMETH 30 ML UNIT-DOSE CUP PO PRN (04:32)
[2018-12-23] MEDS: TRIMETHOBENZAMIDE HCL 200MG/2ML INJ IM PRN ×2 (05:05→18:03)
[2018-12-23] MEDS: METHADONE HCL 40 MG DISPERSABLE TABLET PO SCH ×2 (08:35→10:28)
--- NOTE | 2018-12-23 11:04 | PN ---
[facility] Progress Note Note: Pt c/o nausea vomiting, unable to tolerate po foods. Denies Diarrhea. Saw pt in bed, awake, alert o x3 but calm. Report by nurse that nurse was given Reglan injection earlier during previous shift. Vital Signs - 24 hr 12/23/18 12/23/18 12/23/18 00:30 03:30 07:07 Temperature 97.5 F L Pulse Rate 76 Respiratory 17 18 18 Rate Blood Pressure 133/82 A/P Nausea/Vomiting Continue with Zofran as directed. Repeat CMP and CBC in a.m.
[2018-12-23] MEDS: METHYL SALICYLATE/MENTHOL OINT 30 GM TUBE TP SCH ×2 (13:19→21:30)
[2018-12-23] MEDS: LIDOCAINE 5% TOPICAL PATCH TP SCH (13:19)
[2018-12-23] MEDS: SUCRALFATE 1 GM/10 ML UNIT DOSE CUPS PO SCH ×4 (13:19→21:31)
[2018-12-23] MEDS: NICOTINE 21 MG/24 HOURS TOPICAL PATCH TD SCH (13:20)
[2018-12-23] MEDS: PRENATAL VITAMINS W/ FOLIC ACID TABLET (FP) PO SCH (13:21)
[2018-12-23] MEDS: BUDESONIDE/FORMETEROL FUMARATE 80/4.5 mcg INHALER IH SCH ×2 (13:21→21:27)
[2018-12-23] MEDS ORDERED: LIDOCAINE 5% TOPICAL PATCH TP ONE (15:19)
[2018-12-23] MEDS ORDERED: NICOTINE 21 MG/24 HOURS TOPICAL PATCH TD ONE (15:35)
[2018-12-23] MEDS: traZODone HCL 100 MG TABLET (FP) PO SCH (21:28)
[2018-12-23] MEDS: MELATONIN 5 MG TABLETS PO PRN (21:28)
[2018-12-23] MEDS: LIDOCAINE PATCH REMOVAL MC SCH (21:29)
[2018-12-23] MEDS: THIAMINE HCL 100 MG TABLET (FP) PO SCH (21:30)
[2018-12-23] MEDS ORDERED: LIDOCAINE PATCH REMOVAL MC SCH (22:00)
[2018-12-24] MEDS ORDERED: METHADONE HCL 40 MG DISPERSABLE TABLET PO SCH (06:00)
[2018-12-24] MEDS: METHADONE HCL 40 MG DISPERSABLE TABLET PO SCH (06:04)
[2018-12-24 09:53] LABS: HEMATOCRIT 42.8 % (35.4-49); HEMOGLOBIN 14.4 GM/dL (11.7-16.9); MCH 39.5 pg (25.7-33.7); MCHC 33.7 g/dl (32.0-35.9); MEAN CELL VOLUME 117.1 fl (80-96); MEAN PLT VOLUME 9.1 fl (7.5-11.1); PLATELET COUNT 338 K/MM3 (134-434); RBC 3.65 M/mm3 (4.00-5.60); RDW 19.3 % (11.9-15.9); WHITE BLOOD COUNT 8.5 K/mm3 (4.0-10.0)
[2018-12-24 10:09] LABS: ALBUMIN 3.9 g/dl (3.4-5.0); BILIRUBIN,TOTAL 0.6 mg/dL (0.2-1); BLOOD UREA NITROGEN 13.8 mg/dL (7-18); CALCIUM 10.1 mg/dL (8.5-10.1); CREATININE 0.8 mg/dL (0.55-1.3); POTASSIUM 3.9 mmol/L (3.5-5.1); TOT PROT 8.3 g/dl (6.4-8.2)
[2018-12-24] MEDS: LIDOCAINE 5% TOPICAL PATCH TP SCH (10:39)
[2018-12-24] MEDS: PRENATAL VITAMINS W/ FOLIC ACID TABLET (FP) PO SCH (10:39)
[2018-12-24] MEDS: METHYL SALICYLATE/MENTHOL OINT 30 GM TUBE TP SCH ×2 (10:40→21:30)
[2018-12-24] MEDS: SUCRALFATE 1 GM/10 ML UNIT DOSE CUPS PO SCH ×4 (10:40→21:30)
[2018-12-24] MEDS: BUDESONIDE/FORMETEROL FUMARATE 80/4.5 mcg INHALER IH SCH ×2 (10:40→21:32)
[2018-12-24] MEDS: NICOTINE 21 MG/24 HOURS TOPICAL PATCH TD SCH (10:40)
--- NOTE | 2018-12-24 10:43 | PN ---
S Progress Note Note: Patient is scheduled for discharge tomorrow. Script for 30 days supply of Trazadone 100 mg/hs will be electronically transmitted to [facility] at [address] [place] [id number]
[2018-12-24] MEDS: ACETAMINOPHEN 325 MG TABLET (FP) PO PRN ×2 (10:44→17:39)
[2018-12-24] MEDS: METHOCARBAMOL 500 MG TABLET PO PRN (10:44)
--- NOTE | 2018-12-24 12:29 | PN ---
[facility] Progress Note Note: Pt is scheduled for discharge on . Pt reports Dr. Triplett/ [facility] at [place], [place]. Pt is connected to [facility] and sometimes utilizes the hospital Morning side clinic. Vital Signs - 24 hr 12/24/18 12/24/18 12/24/18 00:30 03:30 07:03 Temperature 97.8 F Pulse Rate 79 Respiratory 18 18 18 Rate Blood Pressure 124/73 Laboratory Tests 12/24/18 12/24/18 08:05 08:05 WBC 8.5 RBC 3.65 L Hgb 14.4 Hct 42.8 MCV 117.1 H D MCH 39.5 H D MCHC 33.7 RDW 19.3 H Plt Count 338 MPV 9.1 Sodium 137 Potassium 3.9 Chloride 101 Carbon Dioxide 28 Anion Gap 8 BUN 13.8 Creatinine 0.8 Est GFR (CKD-EPI)AfAm 130.42 Est GFR (CKD-EPI)NonAf 112.53 Random Glucose 105 Calcium 10.1 Total Bilirubin 0.6 AST 75 H ALT 85 H Alkaline Phosphatase 80 Total Protein 8.3 H Albumin 3.9 Pt reminded to follow up with primary care for medical management of his health.
[2018-12-24] MEDS: LIDOCAINE PATCH REMOVAL MC SCH (21:31)
[2018-12-24] MEDS: traZODone HCL 100 MG TABLET (FP) PO SCH (21:31)
[2018-12-24] MEDS: MELATONIN 5 MG TABLETS PO PRN (21:32)
[2018-12-24] MEDS: THIAMINE HCL 100 MG TABLET (FP) PO SCH (21:32)
[2018-12-24] MEDS: MAG HYDROX/AL HYDROX/SIMETH 30 ML UNIT-DOSE CUP PO PRN (21:50)
[2018-12-24] MEDS: TRIMETHOBENZAMIDE HCL 200MG/2ML INJ IM PRN (22:29)
[2018-12-25] MEDS: METHADONE HCL 40 MG DISPERSABLE TABLET PO SCH ×2 (07:03→13:51)
--- NOTE | 2018-12-25 08:48 | DS ---
[facility] Rehab Discharge Summary - [facility] Rehab Discharge Summary Admission Date: 12/11/18 Discharge Date: 12/26/18 - History Present History: Alcohol dependence, MMTP Additional Comments: Pt is a 38 y/o male with a hx of DANIEL admitted to rehab and scheduled to discharge today. Pt has met with his counselor for aftercare plans and has been referred to CD aftercare treatments at [facility] OPD program and MMTP after discharge. Pt reports he does not have a consistent primary care provider but has utilized [facility] in [place] and [facility] in [facility]. Pt is referred to call and make appoint to follow up at [facility] on [address] [place] [address] for primary care. Ph: . Pertinent Past History: Asthma Gastritis Obesity Chronic Knee pain,left - Discharge Physical Exam Vital Signs: Vital Signs Temperature 97.8 F 12/24/18 07:03 Pulse Rate 79 12/24/18 07:03 Respiratory Rate 18 12/25/18 07:23 Blood Pressure 124/73 12/24/18 07:03 O2 Sat by Pulse Oximetry (%) Alert o x 3 nad oob ambulating with cane with staedy gait. cardiac:s1 s2,rrr lungs:cta,yahir. abdomen:soft,++fatty,nt, extremities/skin:no edema, left knee pain/swelling resolved,full ROM,skin intact. Pertinent Admission Physical Exam Findings: Laboratory Tests 12/24/18 12/24/18 08:05 08:05 WBC 8.5 RBC 3.65 L Hgb 14.4 Hct 42.8 MCV 117.1 H D MCH 39.5 H D MCHC 33.7 RDW 19.3 H Plt Count 338 MPV 9.1 Sodium 137 Potassium 3.9 Chloride 101 Carbon Dioxide 28 Anion Gap 8 BUN 13.8 Creatinine 0.8 Est GFR (CKD-EPI)AfAm 130.42 Est GFR (CKD-EPI)NonAf 112.53 Random Glucose 105 Calcium 10.1 Total Bilirubin 0.6 AST 75 H ALT 85 H Alkaline Phosphatase 80 Total Protein 8.3 H Albumin 3.9 - Treatment Discharge Condition: Discharge condition good Hospital Course: Rehabilitated safely and responded well Cd aftercare referral to [facility] program accepted. - Medication Discharge Medications: Ambulatory Orders traZODone HCL [Desyrel -] 100 mg PO HS #30 tablet 12/24/18 Albuterol Sulfate Inhaler - [Ventolin HFA Inhaler -] 2 inh PO QID PRN #1 inhaler 12/26/18 Budesonide/Formeterol Fumarate [SYMBICORT 80/4.5mcg -] 1 inh PO DAILY #1 inhaler 12/26/18 Sucralfate Oral Suspension [Carafate Oral Suspension -] 1 gm PO QID PRN #1 ml - Medication-Assisted Treatment (MAT) Medication-Assisted Treatment (MAT): No - Discharge Instructions Diet, activity, other medical instructions: Diet:Regular diet Activity: oob ad naomi Other medical instructions:follow up with primary care provider [facility]/Dr. Triplett at [place], [place] within 1 week after discharge Follow up with CD aftercare as recommended and scheduled/ [facility]. - Diagnosis (1) Alcohol dependence Status: Chronic Qualifiers: Substance use status: uncomplicated Qualified Code(s): F10.20 - Alcohol dependence, uncomplicated (2) Nicotine dependence Status: Chronic Qualifiers: Nicotine product type: cigarettes Substance use status: uncomplicated Qualified Code(s): F17.210 - Nicotine dependence, cigarettes, uncomplicated (3) Opioid dependence on agonist therapy Status: Chronic (4) Asthma Status: Chronic Qualifiers: Asthma severity: mild Asthma persistence: intermittent Asthma complication type: with status asthmaticus Qualified Code(s): J45.22 - Mild intermittent asthma with status asthmaticus (5) History of gastritis Status: Chronic (6) Knee pain, chronic Status: Chronic Qualifiers: Laterality: left Qualified Code(s): M25.562 - Pain in left knee; G89.29 - Other chronic pain (7) Obesity (BMI 30-39.9) Status: Chronic - Follow-up Referral Minutes to complete discharge: 30 - AMA Did Patient Leave Against Medical Advice: No
[2018-12-25] MEDS ORDERED: ONDANSETRON *ODT* 4 MG TABLET SL ONE (09:02)
[2018-12-25] MEDS: SUCRALFATE 1 GM/10 ML UNIT DOSE CUPS PO SCH ×4 (10:52→21:11)
[2018-12-25] MEDS: METHYL SALICYLATE/MENTHOL OINT 30 GM TUBE TP SCH ×2 (10:52→21:11)
[2018-12-25] MEDS: PRENATAL VITAMINS W/ FOLIC ACID TABLET (FP) PO SCH (10:53)
[2018-12-25] MEDS: NICOTINE 21 MG/24 HOURS TOPICAL PATCH TD SCH (10:58)
[2018-12-25] MEDS: BUDESONIDE/FORMETEROL FUMARATE 80/4.5 mcg INHALER IH SCH ×2 (10:58→21:13)
[2018-12-25] MEDS: LIDOCAINE 5% TOPICAL PATCH TP SCH (11:00)
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
[2018-12-25] MEDS: TRIMETHOBENZAMIDE HCL 200MG/2ML INJ IM PRN (12:22)
[2018-12-25] MEDS: LIDOCAINE PATCH REMOVAL MC SCH (21:11)
[2018-12-25] MEDS: traZODone HCL 100 MG TABLET (FP) PO SCH (21:11)
[2018-12-25] MEDS: THIAMINE HCL 100 MG TABLET (FP) PO SCH (21:11)
[2018-12-25] MEDS: MELATONIN 5 MG TABLETS PO PRN (21:12)
[2018-12-26] MEDS: METHADONE HCL 40 MG DISPERSABLE TABLET PO SCH (06:07)
[2018-12-26 07:28] VITALS: BP 123/75; PULSE 70; TEMP 97.5
[2018-12-26] MEDS: METHYL SALICYLATE/MENTHOL OINT 30 GM TUBE TP SCH (11:00)
[2018-12-26] MEDS: BUDESONIDE/FORMETEROL FUMARATE 80/4.5 mcg INHALER IH SCH (11:00)
[2018-12-26] MEDS: NICOTINE 21 MG/24 HOURS TOPICAL PATCH TD SCH (11:00)
[2018-12-26] MEDS: PRENATAL VITAMINS W/ FOLIC ACID TABLET (FP) PO SCH (11:00)
[2018-12-26] MEDS: SUCRALFATE 1 GM/10 ML UNIT DOSE CUPS PO SCH (11:00)
[2018-12-26] MEDS: LIDOCAINE 5% TOPICAL PATCH TP SCH (11:00)
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
== END 2018-12-26 12:30 | disposition home or self-care (01) | DRG 772 ==
LOC: YASAS 14:42 → Y5N 14:43
PROVIDERS: ADMIT Neuromusculoskeletal Medicine & OMM; ATTEND Neuromusculoskeletal Medicine & OMM
PROC: HZ42ZZZ Group Counseling for Substance Abuse Treatment, Cognitive-Behavioral (ICD-10-PCS; principal; 2018-12-11)
DX: F10.20 Alcohol dependence, uncomplicated (principal); F11.20 Opioid dependence, uncomplicated; F17.210 Nicotine dependence, cigarettes, uncomplicated; G47.00 Insomnia, unspecified; K29.70 Gastritis, unspecified, without bleeding; J45.909 Unspecified asthma, uncomplicated; M25.562 Pain in left knee; M25.572 Pain in left ankle and joints of left foot; G89.29 Other chronic pain; Z68.37 Body mass index [BMI] 37.0-37.9, adult; Z99.89 Dependence on other enabling machines and devices
CPT/HCPCS: 36415; 80053; 85027; Q0162